=== PATIENT | male | born 2005 | race Caucasian/White ===

== ENCOUNTER 2025-04-11 21:45 | Emergency (ER) | payer OTHER ==
[2025-04-11] MEDS: Morphine 4 MG/ML Syringe IM ONE (22:37)
[2025-04-12] MEDS: Lidocaine 1% 10 ML MDV INJECT ONE
[2025-04-12] MEDS: Bacitracin Oint 1 GM U/D Packet TOP ONE (00:44)
== END 2025-04-12 00:49 | disposition home or self-care (01) ==
LOC: MW.ED 21:45
DX: S61.210A Laceration without foreign body of right index finger without damage to nail, initial encounter (principal); S61.212A Laceration without foreign body of right middle finger without damage to nail, initial encounter; S90.212A Contusion of left great toe with damage to nail, initial encounter; S50.01XA Contusion of right elbow, initial encounter; W22.8XXA Striking against or struck by other objects, initial encounter; Y93.89 Activity, other specified
CPT/HCPCS: 12002; 73080; 73130; 96372; 99283; J2003; J2270